=== PATIENT | female | born 1975 | race Caucasian/White ===

== ENCOUNTER → 2016-11-29 | Outpatient (REF) | payer OTHER ==
[2016-11-29 16:43] LABS: ANION GAP 10 MEQ/L (8-16); BLOOD UREA NITROGEN 7 MG/DL (7-18); CALCIUM LEVEL 9.1 MG/DL (8.5-10.1); CARBON DIOXIDE LEVEL 29 MEQ/L (21-32); CHLORIDE LEVEL 104 MEQ/L (98-107); CREATININE FOR GFR 0.78 MG/DL (0.55-1.02); GLOMERULAR FILTRATION RATE > 60.0 (>58); GLUCOSE, FASTING 72 MG/DL (70-105); POTASSIUM SERUM 3.4 MEQ/L (3.5-5.1); SODIUM LEVEL 143 MEQ/L (136-145)
== END ==
LOC: M SFHCPLAZ 11:45
PROVIDERS: ATTEND Nurse Practitioner Family
DX: E87.6 Hypokalemia (principal)

== ENCOUNTER → 2017-01-17 | Outpatient (REF) | payer OTHER ==
[2017-01-17 16:19] LABS: ANION GAP 6 MEQ/L (8-16); BLOOD UREA NITROGEN 7 MG/DL (7-18); CALCIUM LEVEL 8.6 MG/DL (8.5-10.1); CARBON DIOXIDE LEVEL 29 MEQ/L (21-32); CHLORIDE LEVEL 103 MEQ/L (98-107); CREATININE FOR GFR 0.75 MG/DL (0.55-1.02); GLOMERULAR FILTRATION RATE > 60.0 (>58); GLUCOSE, FASTING 102 MG/DL (70-105); POTASSIUM SERUM 4.6 MEQ/L (3.5-5.1); SODIUM LEVEL 138 MEQ/L (136-145)
[2017-01-17 16:37] LABS: BASO # 0.1 K/mm3 (0.0-0.2); BASO % 0.6 % (0.0-1.0); EOS # 0.3 K/mm3 (0.0-0.50); EOS % 2.6 % (0.0-3.0); LARGE UNSTAINED CELL # 0.3 K/mm3 (0.0-0.4); LYMPH # 3.3 K/mm3 (1.5-4.5); LYMPH % 28.4 % (24.0-44.0); MEAN CORPUSCULAR HEMOGLOBIN 30.1 pg (27.0-33.0); MEAN CORPUSCULAR HGB CONC 31.1 g/dl (32.0-36.5); MEAN CORPUSCULAR VOLUME 96.8 fl (80.0-96.0); MONO # 0.7 K/mm3 (0.0-0.8); MONO % 6.5 % (0.0-5.0); NEUTROPHILS # 6.1 K/mm3 (1.8-7.7); NEUTROPHILS % 58.9 % (36.0-66.0); PLATELET COUNT, AUTOMATED 394 k/mm3 (150-450); RED CELL DISTRIBUTION WIDTH 13.3 % (11.5-14.5); WHITE BLOOD COUNT 10.4 K/mm3 (4.0-10.0)
[2017-01-17 17:08] LABS: ERYTHROCYTE SEDIMENTATION RATE 32 mm/hr (0-20)
== END ==
LOC: M SFHCPLAZ 13:50
PROVIDERS: ATTEND Nurse Practitioner Family
DX: R60.0 Localized edema (principal); S82.141G Displaced bicondylar fracture of right tibia, subsequent encounter for closed fracture with delayed healing

== ENCOUNTER 2017-03-17 20:15 | Emergency (ER) | payer OTHER ==
[~2017-03-17] VITALS: Ht 157.5 cm; Wt 79.0 kg
[2017-03-17] MEDS ORDERED: VENLAFAXINE PO (21:04)
[2017-03-17] MEDS ORDERED: FURO20TA2 PO (21:04)
[2017-03-17] MEDS ORDERED: MORP1TAB21 PO (21:04)
[2017-03-17] MEDS ORDERED: CLON1TAB PO (21:04)
[2017-03-17] MEDS ORDERED: LOSA25TA8 PO (21:04)
[2017-03-17] MEDS ORDERED: ZOLP10TA2 PO (21:04)
[2017-03-17] MEDS ORDERED: CEPH500C PO (21:04)
[2017-03-17] MEDS ORDERED: POTA20TA6 PO (21:04)
[2017-03-17] MEDS ORDERED: PANT40TA2 PO (21:04)
[2017-03-18] MEDS ORDERED: PERCOCET 5MG/325MG TAB PO ONE
[2017-03-18 00:38] VITALS: BP 115/71
--- NOTE | 2017-03-18 01:00 | REPUSA ---
CLINICAL HISTORY: Edema. COMMENTS: Real time sonography with duplex doppler of the right lower extremity was performed with attention to the major deep venous structures. Evaluation reveals the right common femoral, superficial femoral and popliteal veins to be completely compressible without intraluminal thrombus. There is normal spontaneous phasic flow and augmentation . The greater saphenous/common femoral vein junction is patent. IMPRESSION: No evidence of DVT in right lower extremity. Thank you for your kind referral of this patient.
== END 2017-03-18 00:40 | disposition home or self-care (01) ==
LOC: M ED 21:53
DX: R60.9 Edema, unspecified (principal); F17.200 Nicotine dependence, unspecified, uncomplicated; Z79.899 Other long term (current) drug therapy; Z88.1 Allergy status to other antibiotic agents; Z88.2 Allergy status to sulfonamides; Z88.8 Allergy status to other drugs, medicaments and biological substances; Z90.79 Acquired absence of other genital organ(s)

== ENCOUNTER → 2017-05-03 | Outpatient (REF) | payer OTHER ==
[~2017-05-03] MED LIST: CEPH500C PO; CLON1TAB PO; FURO20TA2 PO; LOSA25TA8 PO; MORP1TAB21 PO; PANT40TA2 PO; POTA20TA6 PO; VENLAFAXINE PO; ZOLP10TA2 PO
[2017-05-03 19:58] LABS: ANION GAP 9 MEQ/L (8-16); BLOOD UREA NITROGEN 8 MG/DL (7-18); CALCIUM LEVEL 9.1 MG/DL (8.5-10.1); CARBON DIOXIDE LEVEL 29 MEQ/L (21-32); CHLORIDE LEVEL 103 MEQ/L (98-107); CREATININE FOR GFR 0.62 MG/DL (0.55-1.02); FREE T4 0.63 NG/DL (0.76-1.46); GLOMERULAR FILTRATION RATE > 60.0 (>58); GLUCOSE, FASTING 74 MG/DL (70-105); POTASSIUM SERUM 4.4 MEQ/L (3.5-5.1); SODIUM LEVEL 141 MEQ/L (136-145)
[2017-05-04 08:32] LABS: T UPTAKE 30 % (30-39); THYROXINE (T4) 6.3 UG/DL (4.5-12.0)
== END ==
LOC: M SFHCPLAZ 15:17
PROVIDERS: ATTEND Nurse Practitioner Family
DX: E87.6 Hypokalemia (principal); I10 Essential (primary) hypertension; K63.9 Disease of intestine, unspecified

== ENCOUNTER → 2018-10-25 | Outpatient (REF) | payer BC, OTHER ==
[~2018-10-25] MED LIST changes: -CLON1TAB PO; +CLON1TAB8 PO; +LOSA25TA14 PO; -LOSA25TA8 PO; -PANT40TA2 PO; +PANT40TA3 PO
== END ==
LOC: M SFHCCLAY 16:16
PROVIDERS: ATTEND Nurse Practitioner Family
DX: R50.9 Fever, unspecified (principal)

== ENCOUNTER → 2019-01-29 | Outpatient (REF) | payer BC ==
[2019-01-30 11:24] LABS: BLOOD UREA NITROGEN 7 MG/DL (7-18); CALCIUM LEVEL 8.8 MG/DL (8.5-10.1); CARBON DIOXIDE LEVEL 30 MEQ/L (21-32); CHLORIDE LEVEL 104 MEQ/L (98-107); CREATININE FOR GFR 0.74 MG/DL (0.55-1.30); GLOMERULAR FILTRATION RATE > 60.0 (>58); GLUCOSE, FASTING 91 MG/DL (70-100); POTASSIUM SERUM 4.9 MEQ/L (3.5-5.1); SODIUM LEVEL 137 MEQ/L (136-145)
== END ==
LOC: M SFHCCLAY 13:46
PROVIDERS: ATTEND Nurse Practitioner Family
DX: R60.1 Generalized edema (principal)

== ENCOUNTER → 2019-03-19 | Outpatient (CLI) | payer BC ==
--- NOTE | 2019-03-19 16:59 | REP ---
Bilateral hip series: Four views. History: Bilateral hip pain. Findings: AP and frog-leg views of each hip show smooth rounded femoral heads and intact hip joint space. Periarticular soft tissues are unremarkable. No erosive change is seen. Impression: Negative radiographs of the hips bilaterally.
== END ==
LOC: M CLY 14:04
PROVIDERS: ATTEND Nurse Practitioner Family
DX: M25.552 Pain in left hip (principal); M25.551 Pain in right hip

== ENCOUNTER 2019-07-10 14:46 | Inpatient (IN) | payer BC ==
[~2019-07-10] VITALS: Ht 157.5 cm; Wt 71.9 kg
[2019-07-10 15:30] VITALS: BP 138/78
[2019-07-10] MEDS: VENLAFAXINE **XR** 75MG CAPSULE PO SCH (16:30)
[2019-07-10] MEDS ORDERED: CLINDAMYCIN 600 MG in IV 1 EA IV SCH (16:45)
[2019-07-10] MEDS ORDERED: TIZA4TAB4 PO (17:01)
[2019-07-10] MEDS ORDERED: OXYC1TAB23 PO (17:01)
[2019-07-10] MEDS ORDERED: LINZ290C PO (17:01)
[2019-07-10] MEDS ORDERED: DOCU100C17 PO (17:01)
[2019-07-10] MEDS ORDERED: DICY20TA PO (17:01)
[2019-07-10] MEDS ORDERED: META28.32 PO (17:01)
[2019-07-10] MEDS ORDERED: MUPI2OI TOP (17:01)
[2019-07-10] MEDS ORDERED: VENL-37 PO (17:01)
[2019-07-10] MEDS ORDERED: DILT60TA PO (17:01)
[2019-07-10] MEDS ORDERED: SUMA50TA2 PO (17:01)
[2019-07-10] MEDS ORDERED: LINE1TAB PO (17:01)
[2019-07-10] MEDS ORDERED: VENTAER INH (17:03)
[2019-07-10] MEDS: MORPHINE 4 MG/ML 1ML VIAL/SYRINGE (J2270) IV PRN ×2 (17:23→21:44)
[2019-07-10 17:31] LABS: BASO # 0.1 10^3/uL (0.0-0.2); BASO % 0.5 % (0.0-1.0); EOS # 0.1 10^3/uL (0.0-0.5); EOS % 0.8 % (0.0-3.0); HEMATOCRIT 42.3 % (36.0-47.0); HEMOGLOBIN 13.5 g/dl (12.0-15.5); LYMPH # 2.8 10^3/uL (1.5-5.0); LYMPH % 23.5 % (24.0-44.0); MEAN CORPUSCULAR HEMOGLOBIN 28.9 pg (27.0-33.0); MEAN CORPUSCULAR HGB CONC 31.9 g/dl (32.0-36.5); MEAN CORPUSCULAR VOLUME 90.6 fl (80.0-96.0); MONO # 0.7 10^3/uL (0.0-0.8); MONO % 5.9 % (0.0-5.0); NEUTROPHILS # 8.1 10^3/uL (1.5-8.5); NEUTROPHILS % 68.9 % (36.0-66.0); PLATELET COUNT, AUTOMATED 307 10^3/uL (150-450); RED BLOOD COUNT 4.67 10^6/uL (4.00-5.40); WHITE BLOOD COUNT 11.8 10^3/uL (4.0-10.0)
[2019-07-10 17:33] LABS: BLOOD UREA NITROGEN 6 MG/DL (7-18); C REACTIVE PROTEIN QUANTITATIV 0.38 MG/DL (0.00-0.30); CALCIUM LEVEL 9.1 MG/DL (8.5-10.1); CARBON DIOXIDE LEVEL 26 MEQ/L (21-32); CHLORIDE LEVEL 106 MEQ/L (98-107); CREATININE FOR GFR 0.86 MG/DL (0.55-1.30); GLOMERULAR FILTRATION RATE > 60.0 (>58); GLUCOSE, FASTING 105 MG/DL (70-100); POTASSIUM SERUM 3.1 MEQ/L (3.5-5.1); SODIUM LEVEL 138 MEQ/L (136-145)
[2019-07-10] MEDS: NORCO, ANEXSIA 5/325MG TABLET (HYDROcodone/ACETAMINOPHEN) PO PRN (17:58)
[2019-07-10 18:45] LABS: ERYTHROCYTE SEDIMENTATION RATE 7 mm/hr (0-20)
[2019-07-10] MEDS ORDERED: SUMAtriptan SUCCINATE 25 MG TAB PO PRN (19:15)
[2019-07-10] MEDS ORDERED: ALBUTEROL 90 MCG/ACT 8GM HFA INHALER INH PRN (19:15)
[2019-07-10] MEDS ORDERED: DICYCLOMINE 10 MG CAP PO PRN (19:30)
[2019-07-10] MEDS ORDERED: VANCOMYCIN HCL 1,000 MG, VIAL MATE ADAPTER 1 EACH in D5W 250 ML IV ONE (20:00)
[2019-07-10] MEDS ORDERED: POTASSIUM CHLORIDE 10 MEQ SR TABLET PO ONE (20:00)
[2019-07-10] MEDS: clonazePAM 1 MG TAB PO PRN (20:03)
[2019-07-10] MEDS: tiZANidine 4 MG TAB PO PRN (20:03)
--- NOTE | 2019-07-10 20:30 | HPEPDOC ---
General Date of Admission Jul 10, 2019 at 14:46 Date of Service: Jul 10, 2019 Chief Complaint The patient is a 43-year-old female admitted with a reason for visit of Bilateral Post Op Wound Infection. Source: Patient, RN/MD Exam Limitations: No limitations Timing/Duration: Week(s) Severity: Moderate Associated Symptoms: Fever, Chills History of Present Illness This 43-year-old female who's been having difficulty with plantar fasciitis for at least 2 years. She has undergone multiple noninvasive modalities without good results. She has subsequently undergone bilateral plantar fascia release on June 25. She has had remarkable pain since then. She notes having onset of fever up to 101.2 and chills. She states on occasion she has had drainage from her right foot wound. She has been on outpatient oral antibiotics inclusive of clindamycin and most recently linezolid. She still has not improved and so she has been directly admitted for additional inpatient management. Other history of interest is that the patient reports having chronic lower extremity edema. She also has episodes of tachycardia. She states she is on Lasix for this. Home Medications Scheduled Diltiazem Hcl (Diltiazem HCl) 60 Mg Tablet, 60 MG PO AC, (Reported) Docusate Sodium (Docusate Sodium) 100 Mg Capsule, 100 MG PO Q2D, (Reported) Furosemide (Furosemide) 20 Mg Tab, 20 MG PO BID, (Reported) Linezolid (Linezolid) 600 Mg Tablet, 600 MG PO BID, (Reported) Losartan Potassium (Losartan Potassium) 25 Mg Tab, 25 MG PO DAILY, (Reported) Mupirocin (Mupirocin) 22 Gm Oint...g., 1 APPLIC TOP DAILY, (Reported) APPLY TO INCISION ON FOOT Pantoprazole Sodium (Pantoprazole Sodium) 40 Mg Tab, 40 MG PO DAILY, (Reported) Potassium Chloride (Potassium Chloride) 20 Meq Tab, 40 MEQ PO DAILY, (Reported) Psyllium Husk (with Sugar) (Metamucil Powder) 575 Gm Powder, 1 PKT PO Q2D, (Reported) Venlafaxine HCl (Venlafaxine HCl) 75 Mg Tablet, 225 MG PO DAILY, (Reported) TAKES 225MG TAB AT HOME Scheduled PRN Albuterol Sulfate (Ventolin Hfa) 18 Gm Hfa.aer.ad, 2 PUFF INH Q4H PRN for wheezing, (Reported) Clonazepam (Clonazepam) 1 Mg Tab, 1 MG PO BID PRN for anxiety, (Reported) Dicyclomine HCl (Dicyclomine HCl) 20 Mg Tablet, 20 MG PO DAILY PRN for IRRITABLE BOWEL, (Reported) Linaclotide (Linzess) 290 Mcg Capsule, 290 MCG PO DAILY PRN for CONSTIPATION, (Reported) Oxycodone HCl/Acetaminophen (Oxycodone-Acetaminophen 5-325) 1 Each Tablet, 1 TAB PO Q8H PRN for PAIN, (Reported) Sumatriptan Succinate (Sumatriptan Succinate) 50 Mg Tablet, 50 MG PO DAILY PRN for MIGRAINE, (Reported) REPEAT AFTER 2 HOURS IF SYMPTOMS PERSIST Tizanidine HCl (Tizanidine HCl) 4 Mg Tablet, 4 MG PO Q6H PRN for MUSCLE SPASMS, (Reported) Allergies Coded Allergies: ketorolac (Verified Allergy, Mild, 07/10/19) Sulfa (Sulfonamide Antibiotics) (Verified Allergy, Unknown, 07/10/19) clarithromycin (Verified Allergy, Unknown, 07/10/19) propranolol (Verified Allergy, Unknown, 07/10/19) Past Medical History Medical History Other past medical history includes fibromyalgia, psoriasis, asthma, irritable bowel syndrome, migraine headaches, lumbar stenosis, fibromatosis. Patient also reports that she is positive for HLA B 27, but this is of unclear significance. Surgical History Surgical history includes prior , tonsillectomy with adenoidectomy, cholecystectomy, resection of "bone nodules", carpal tunnel release, resection of endochondroma. Family History Patient reports maternal history of valvular heart disease requiring valve replacement surgery. There is paternal history of leukemia and scleroderma with Raynaud's. 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 Physical Examination General Exam: Positive: Cooperative, Mild Distress (from pain) Eye Exam: Positive: PERRLA, Conjunctiva & lids normal ENT Exam: Positive: Atraumatic, Mucous membr. moist/pink, Tongue Midline Neck Exam: Positive: Supple; Negative: JVD, thyromegaly Chest Exam: Positive: Clear to auscultation, Normal air movement Heart Exam: Positive: Rate Normal, Regular Rhythm, Normal S1, Normal S2; Negative: Murmurs, Rubs Telemetry: Positive: No significant arrhythmia Abdomen Exam: Positive: Normal bowel sounds, Soft; Negative: Tenderness, Hepatospenomegaly Extremity Exam: Positive: Normal pulses, Tenderness, Swelling, Other (incision site at the medial base of her right heel is quite swollen and she reports some drainage of pus from this site. It is remarkably warm and erythematous. Incision site to the medial base of her left heel is fairly clean. There is erythema but no drainage. It is not especially tender.) Skin Exam: Positive: Nl turgor and temperature, Lesion (she does not currently exhibit psoriasis plaques) Neuro Exam: Positive: Normal Gait, Normal Speech, Cranial Nerves 3-12 NL, Reflexes 2+ Psych Exam: Positive: Anxiety (the patient is extremely anxious), Oriented x 3 Vital Signs Vital Signs Date Time Temp Pulse Resp B/P (MAP) Pulse Ox O2 Delivery O2 Flow Rate FiO2 07/10/19 18:55 20 07/10/19 15:30 97.7 83 138/78 (98) 97 Laboratory Data Labs 24H Laboratory Tests 2 07/10/19 16:53: Immature Granulocyte % (Auto) 0.4, White Blood Count 11.8H, Red Blood Count 4.67, Hemoglobin 13.5, Hematocrit 42.3, Mean Corpuscular Volume 90.6, Mean Corpuscular Hemoglobin 28.9, Mean Corpuscular Hemoglobin Concent 31.9L, Red Cell Distribution Width 14.9H, Platelet Count 307, Neutrophils (%) (Auto) 68.9H, Lymphocytes (%) (Auto) 23.5L, Monocytes (%) (Auto) 5.9H, Eosinophils (%) (Auto) 0.8, Basophils (%) (Auto) 0.5, Neutrophils # (Auto) 8.1, Lymphocytes # (Auto) 2.8, Monocytes # (Auto) 0.7, Eosinophils # (Auto) 0.1, Basophils # (Auto) 0.1, Nucleated Red Blood Cells % (auto) 0.0, Erythrocyte Sedimentation Rate 7, Anion Gap 6L, Glomerular Filtration Rate > 60.0, Blood Urea Nitrogen 6L, Creatinine 0.86, Sodium Level 138, Potassium Level 3.1L, Chloride Level 106, Carbon Dioxide Level 26, Calcium Level 9.1, C-Reactive Protein, Quantitative 0.38H CBC/BMP Laboratory Tests 07/10/19 16:53 Red Blood Count 4.67, Mean Corpuscular Volume 90.6, Mean Corpuscular Hemoglobin 28.9, Mean Corpuscular Hemoglobin Concent 31.9 L, Red Cell Distribution Width 14.9 H, Neutrophils (%) (Auto) 68.9 H, Lymphocytes (%) (Auto) 23.5 L, Monocytes (%) (Auto) 5.9 H, Eosinophils (%) (Auto) 0.8, Basophils (%) (Auto) 0.5, Neutrophils # (Auto) 8.1, Lymphocytes # (Auto) 2.8, Monocytes # (Auto) 0.7, Eosinophils # (Auto) 0.1, Basophils # (Auto) 0.1, Calcium Level 9.1 Microbiology Microbiology 07/10/19 Blood Culture, Received Pending Assessment/Plan 1. Postop wound infection. Given the presence of erythema, fever, chills, and drainage from the right heel wound site concern is raised for postop wound infection. We will check a white blood cell count and inflammatory indicators. Hopefully, there is not involvement of underlying bone. Cultures will be obtained and the patient will be placed on empiric antibiotics in the form of IV clindamycin. We will remain in contact with the podiatry service, it is possible that the right heel site might need drainage if it does not respond to IV antibiotics. We will make use of IV morphine and oral hydrocodone for pain management; patient states she has been on Vicodin and Percocet at home. 2. Irritable bowel syndrome. We will continue with the patient's dicyclomine as needed. We do not have Linzess on formulary. 3. Migraine headache, asthma, fibromyalgia. We will continue medication such as Effexor, sumatriptan and her metered-dose inhalers for management. 4. Adverse reactions. We will need to clarify the patient's drug allergies; she reports allergies to codeine, sulfa drugs and Toradol; clarithromycin and propranolol are also reported. The patient is inpatient status. We anticipate it will take greater than 2 midnights to clarify whether she is going to be antibiotic responsive or require any invasive/surgical intervention. Plan / VTE VTE Prophylaxis Ordered?: Yes (patient is receiving DVT prophylaxis with Lovenox) Plan Diet: Continue Current Activity: Continue Current Medications: Replete Electrolytes PO, Start Antibiotics Diagnostics: Check Labs, Repeat Labs in AM, Obtain Cultures, Xrays (consider if there are signs of deep inflammation) Anticipated Discharge: Home SANTOS FELICIANO MD Jul 10, 2019 20:30
[2019-07-10] MEDS ORDERED: VANCOMYCIN HCL 500 MG in D5W MINI-BAG PLUS 100 ML IV ONE (21:00)
[2019-07-10] MEDS: zolPIDEM TARTRATE 5 MG TAB PO SCH (21:42)
[2019-07-10] MEDS: MUPIROCIN 2% OINT 22 GM TUBE TOP SCH (21:43)
[2019-07-10 22:00] VITALS: BP 101/58
--- NOTE | 2019-07-10 23:41 | PHACANCOPD ---
PHARMACY VANCOMYCIN DOSING Pt Demographics Demographics Patient Age:43 , Weight:71.900 , Gender: female Adjusted Body Weight Events Past 24 Hours Events Past 24 Hours: NO: Dialysis, Diuretic Therapy, Change in CrCl, Fever, Elevation in WBC, Pending Diagnostics, Pending Procedures, Other Vancomycin Vancomycin indication: CELLULITIS post surgical Vancomycin Target Ranges: 10-20 mcg/ml Vancomycin Load Y/N: Yes Load Dose Date Time Vancomycin Load Dose: 1.5GM Date: 07/10/19 Time: 20:00 Vancomycin Dose Date: 07/11/19. Current Vancomycin Dose: [1GM IV Q8H (04:00)] Intermittent Dosing?: No Labs Labs Laboratory Tests 07/10/19 16:53 Red Blood Count 4.67, Mean Corpuscular Volume 90.6, Mean Corpuscular Hemoglobin 28.9, Mean Corpuscular Hemoglobin Concent 31.9 L, Red Cell Distribution Width 14.9 H, Neutrophils (%) (Auto) 68.9 H, Lymphocytes (%) (Auto) 23.5 L, Monocytes (%) (Auto) 5.9 H, Eosinophils (%) (Auto) 0.8, Basophils (%) (Auto) 0.5, Neutrophils # (Auto) 8.1, Lymphocytes # (Auto) 2.8, Monocytes # (Auto) 0.7, Eosinophils # (Auto) 0.1, Basophils # (Auto) 0.1, Calcium Level 9.1 Micro Microbiology 07/10/19 Blood Culture, Received Pending Creatinine Clearance Date:07/10/19. Creatinine Clearance: [>60]. Pending Labs VANCO TROUGH 07/11/19 19:00 Assessment and Plan Maintaining Current Dose?: Yes Reason for dose change: No Dose Change Pharmacist Note Pharmacist Note Date: 07/10/19. PharmD note:VANCO 1.5GM LOAD FOLLOWED BY 1GM IV Q8H STARTING AT 04:l00. WE WILL OBTAIN THE FIRST VANCO TROUGH PRIOR TO THE 20:00 DOSE 07/11/19 RAFAEL BUCKNER PHARMACY Jul 10, 2019 23:41
[2019-07-11] MEDS: NORCO, ANEXSIA 5/325MG TABLET (HYDROcodone/ACETAMINOPHEN) PO PRN ×5 (00:15→20:49)
[2019-07-11] MEDS: VANCOMYCIN HCL 1,000 MG, VIAL MATE ADAPTER 1 EACH in D5W 250 ML IV SCH ×2 (03:34→12:58)
[2019-07-11] MEDS: MORPHINE 4 MG/ML 1ML VIAL/SYRINGE (J2270) IV PRN ×6 (03:34→21:44)
[2019-07-11 06:00] VITALS: BP 106/67
[2019-07-11 06:44] LABS: BLOOD UREA NITROGEN 7 MG/DL (7-18); CALCIUM LEVEL 8.8 MG/DL (8.5-10.1); CARBON DIOXIDE LEVEL 27 MEQ/L (21-32); CHLORIDE LEVEL 105 MEQ/L (98-107); GLOMERULAR FILTRATION RATE > 60.0 (>58); GLUCOSE, FASTING 86 MG/DL (70-100); MAGNESIUM LEVEL 1.6 MG/DL (1.8-2.4); POTASSIUM SERUM 3.3 MEQ/L (3.5-5.1); SODIUM LEVEL 139 MEQ/L (136-145)
[2019-07-11] MEDS: FUROSEMIDE 20 MG TAB PO SCH ×2 (08:16→16:43)
[2019-07-11] MEDS: VENLAFAXINE **XR** 75MG CAPSULE PO SCH (08:16)
[2019-07-11] MEDS: DOCUSATE SODIUM 100 MG CAP PO SCH (08:16)
[2019-07-11] MEDS: LOSARTAN 25 MG TAB PO SCH (08:18)
[2019-07-11] MEDS: METAMUCIL (PSYLLIUM) PACKET PO SCH (08:18)
[2019-07-11] MEDS: ENOXAPARIN 40 MG/0.4 ML SYRINGE (J1650) SC SCH (08:19)
[2019-07-11] MEDS: MUPIROCIN 2% OINT 22 GM TUBE TOP SCH ×2 (08:39→20:48)
--- NOTE | 2019-07-11 08:53 | IPNPDOC ---
Subjective Date Seen The patient was seen on 07/11/19. Subjective Chief Complaint/HPI Pt this morning states that her feet, heels cont to hurt R more than L. She denies fevers or chills. She does have a cough which she attributes to not smoking in the last few days. Constitutional: Denies: Chills, Fever Pulmonary: Reports: Cough; Denies: Dyspnea Gastrointestinal: Denies: Nausea, Vomiting Musculoskeletal: Reports: Foot Pain Neurological: Denies: Weakness Psych: Denies: Mood Normal Objective Physical Examination General Exam: Positive: Cooperative, No Acute Distress ENT Exam: Positive: Mucous membr. moist/pink Neck Exam: Positive: Supple; Negative: JVD, thyromegaly Chest Exam: Positive: Clear to auscultation, Normal air movement Heart Exam: Positive: Rate Normal, Regular Rhythm, Normal S1, Normal S2; Negative: Murmurs, Rubs Telemetry: Positive: No significant arrhythmia Abdomen Exam: Positive: Normal bowel sounds, Soft; Negative: Tenderness, Hepatospenomegaly Extremity Exam: Positive: Normal pulses, Tenderness, Swelling, Other (R heel appears swollen, warm and erythematous, with medial incision, there appears to be some fluctuation around the incision, L heel also warm, mildly erythematous, swollen, less tender, per patient report. No reactive lymphadenopathy at right i nguinal node bed.) Skin Exam: Positive: Nl turgor and temperature, Lesion (she does not currently exhibit psoriasis plaques) Neuro Exam: Positive: Normal Gait, Normal Speech, Cranial Nerves 3-12 NL, Reflexes 2+ Psych Exam: Positive: Anxiety, Oriented x 3 Assessment /Plan Problems (1) Wound infection after surgery Status: Acute Response to Treatment: Stable Discussed With: Nurse, Patient Problem Specific Plan: Consult Specialist, Monitor Clinically, Repeat Labs Problem Text: Pt is Post op Bilatral plantar fascitis release with wound infection. She is afebrile, nl WBC, CRP on admission 0.38. She has been started on IV CLinda D2 and vancomycin and is tolerating this. IV morphine for pain control. Dr Marquez has been consulted. Will d/c clinda, start ceftaroline. Consider ID consult if not improving quickly. At this point will leave wound management decision to Dr. Marquez (whether wound requires I&D). (2) Smoker Status: Chronic Response to Treatment: Stable Problem Specific Plan: Monitor Clinically Problem Text: Smoking cessation counseling. Plan/VTE VTE Prophylaxis Ordered?: Yes VS, I&O, 24H, Fishbone Vital Signs/I&O Vital Signs Date Time Temp Pulse Resp B/P (MAP) Pulse Ox O2 Delivery O2 Flow Rate FiO2 07/11/19 08:22 18 07/11/19 08:18 109/68 07/11/19 07:46 69 07/11/19 06:00 98.0 94 I&O- Last 24 Hours up to 6 AM 07/11/19 06:00 Intake Total 1500 ml Output Total 900 ml Balance 600 ml Laboratory Data 24H LABS Laboratory Tests 2 07/10/19 16:53: Immature Granulocyte % (Auto) 0.4, White Blood Count 11.8H, Red Blood Count 4.67, Hemoglobin 13.5, Hematocrit 42.3, Mean Corpuscular Volume 90.6, Mean Corpuscular Hemoglobin 28.9, Mean Corpuscular Hemoglobin Concent 31.9L, Red Cell Distribution Width 14.9H, Platelet Count 307, Neutrophils (%) (Auto) 68.9H, Lymphocytes (%) (Auto) 23.5L, Monocytes (%) (Auto) 5.9H, Eosinophils (%) (Auto) 0.8, Basophils (%) (Auto) 0.5, Neutrophils # (Auto) 8.1, Lymphocytes # (Auto) 2.8, Monocytes # (Auto) 0.7, Eosinophils # (Auto) 0.1, Basophils # (Auto) 0.1, Nucleated Red Blood Cells % (auto) 0.0, Erythrocyte Sedimentation Rate 7, Anion Gap 6L, Glomerular Filtration Rate > 60.0, Blood Urea Nitrogen 6L, Creatinine 0.86, Sodium Level 138, Potassium Level 3.1L, Chloride Level 106, Carbon Dioxide Level 26, Calcium Level 9.1, C-Reactive Protein, Quantitative 0.38H 07/11/19 05:55: Anion Gap 7L, Glomerular Filtration Rate > 60.0, Blood Urea Nitrogen 7, Creatinine 0.80, Sodium Level 139, Potassium Level 3.3L, Chloride Level 105, Carbon Dioxide Level 27, Calcium Level 8.8, Magnesium Level 1.6L CBC/BMP Laboratory Tests 07/10/19 16:53 Red Blood Count 4.67, Mean Corpuscular Volume 90.6, Mean Corpuscular Hemoglobin 28.9, Mean Corpuscular Hemoglobin Concent 31.9 L, Red Cell Distribution Width 14.9 H, Neutrophils (%) (Auto) 68.9 H, Lymphocytes (%) (Auto) 23.5 L, Monocytes (%) (Auto) 5.9 H, Eosinophils (%) (Auto) 0.8, Basophils (%) (Auto) 0.5, Neutrophils # (Auto) 8.1, Lymphocytes # (Auto) 2.8, Monocytes # (Auto) 0.7, Eosinophils # (Auto) 0.1, Basophils # (Auto) 0.1, Calcium Level 9.1 07/11/19 05:55 Calcium Level 8.8 Microbiology Microbiology 07/10/19 Blood Culture, Received Pending EVRIN OCONNOR PA-C Jul 11, 2019 08:53 Kamari Titus MD Jul 11, 2019 12:12
[2019-07-11] MEDS ORDERED: PANTOPRAZOLE 40MG TAB (PROTONIX) PO SCH (09:00)
[2019-07-11] MEDS ORDERED: INFLUENZA QUADRIVALENT PF VACCINE 0.5ML SYRINGE (90686) IM ONE (09:00)
[2019-07-11] MEDS ORDERED: POTASSIUM CHLORIDE 10 MEQ SR TABLET PO SCH (09:00)
[2019-07-11] MEDS ORDERED: POTASSIUM CHLORIDE 10 MEQ SR TABLET PO ONE (09:00)
[2019-07-11] MEDS ORDERED: MAGNESIUM OXIDE 400 MG TAB (MAG-OX) PO ONE (10:00)
[2019-07-11] MEDS: PANTOPRAZOLE 40MG TAB (PROTONIX) PO SCH (10:00)
[2019-07-11] MEDS: CEFTAROLINE FOSAMIL 600 MG in D5W MINI-BAG PLUS 50 ML IV SCH ×2 (11:00→23:34)
--- NOTE | 2019-07-11 12:38 | CR ---
DATE OF CONSULTATION: 07/11/2019 REASON FOR CONSULTATION: Postoperative infection. Ms. Muro is a 44-year-old female who was seen in my office yesterday for postoperative evaluation. She had bilateral open plantar fascial release on 06/25/2019. The week following, she had developed redness and increasing pain along the incision. She was initially treated with cephalexin. She ultimately went to the emergency room days later with worsening pain and was given IV clindamycin. She had then been started on linezolid, which she has received three days. She had persisting redness, as well as subjective fevers at home. Decision was made to bring her to the hospital for IV antibiotics and pain management. PAST MEDICAL HISTORY: 1. Fibromyalgia. 2. Psoriasis. 3. Lumbar stenosis. SURGICAL HISTORY: 1. Tonsillectomy. 2. Adenoidectomy. 3. Cholecystectomy. 4. Carpal tunnel release. 5. Plantar fascia release. SOCIAL HISTORY: Current smoker. REVIEW OF SYSTEMS: Negative for nausea or vomiting or fever since admitted. PHYSICAL EXAMINATION: VITAL SIGNS: Reviewed. She has remained afebrile. Lower extremity examination shows erythema around the incision, which is somewhat improved from yesterday. There is mild posterior rash to the arches suggestive of fungus infection. LABORATORIES: Reviewed. White blood cell count is 11.8, ESR 7, C-reactive protein 0.38. ASSESSMENT: 44-year-old female with cellulitis status post foot surgery. PLAN: Continue antibiotics. Continue current pain management. We will add ketoconazole for her rash. We will follow.
[2019-07-11 14:00] VITALS: BP 118/76
[2019-07-11] MEDS: tiZANidine 4 MG TAB PO PRN (20:12)
[2019-07-11] MEDS: clonazePAM 1 MG TAB PO PRN (20:12)
[2019-07-11] MEDS: zolPIDEM TARTRATE 5 MG TAB PO SCH (20:47)
[2019-07-11] MEDS: MAGNESIUM OXIDE 400 MG TAB (MAG-OX) PO SCH (20:47)
[2019-07-11] MEDS: KETOCONAZOLE 2% CREAM TOP SCH (20:48)
[2019-07-11 22:00] VITALS: BP 103/66
[2019-07-12 05:49] LABS: BASO # 0.1 10^3/uL (0.0-0.2); EOS # 0.2 10^3/uL (0.0-0.5); EOS % 3.6 % (0.0-3.0); HEMATOCRIT 37.3 % (36.0-47.0); HEMOGLOBIN 11.6 g/dl (12.0-15.5); LYMPH % 34.1 % (24.0-44.0); MEAN CORPUSCULAR HEMOGLOBIN 28.3 pg (27.0-33.0); MEAN CORPUSCULAR HGB CONC 31.1 g/dl (32.0-36.5); MONO # 0.7 10^3/uL (0.0-0.8); MONO % 11.2 % (0.0-5.0); NEUTROPHILS # 2.9 10^3/uL (1.5-8.5); NEUTROPHILS % 49.8 % (36.0-66.0); PLATELET COUNT, AUTOMATED 248 10^3/uL (150-450); WHITE BLOOD COUNT 5.9 10^3/uL (4.0-10.0)
[2019-07-12 06:00] VITALS: BP 120/71
[2019-07-12 06:15] LABS: BLOOD UREA NITROGEN 6 MG/DL (7-18); CALCIUM LEVEL 8.4 MG/DL (8.5-10.1); CARBON DIOXIDE LEVEL 30 MEQ/L (21-32); CHLORIDE LEVEL 105 MEQ/L (98-107); CREATININE FOR GFR 0.74 MG/DL (0.55-1.30); GLOMERULAR FILTRATION RATE > 60.0 (>58); GLUCOSE, FASTING 90 MG/DL (70-100); SODIUM LEVEL 140 MEQ/L (136-145)
[2019-07-12 06:16] LABS: C REACTIVE PROTEIN QUANTITATIV 1.02 MG/DL (0.00-0.30)
[2019-07-12] MEDS: NORCO, ANEXSIA 5/325MG TABLET (HYDROcodone/ACETAMINOPHEN) PO PRN ×2 (08:24→17:36)
[2019-07-12] MEDS: FUROSEMIDE 20 MG TAB PO SCH ×2 (08:59→17:35)
[2019-07-12] MEDS: VENLAFAXINE **XR** 75MG CAPSULE PO SCH (08:59)
[2019-07-12] MEDS: MAGNESIUM OXIDE 400 MG TAB (MAG-OX) PO SCH ×2 (09:00→20:58)
[2019-07-12] MEDS: PANTOPRAZOLE 40MG TAB (PROTONIX) PO SCH (09:00)
[2019-07-12] MEDS ORDERED: PANTOPRAZOLE 40MG TAB (PROTONIX) PO SCH (09:00)
[2019-07-12] MEDS: POTASSIUM CHLORIDE 10 MEQ SR TABLET PO SCH (09:01)
[2019-07-12] MEDS: ENOXAPARIN 40 MG/0.4 ML SYRINGE (J1650) SC SCH (09:01)
[2019-07-12] MEDS: LOSARTAN 25 MG TAB PO SCH (09:01)
[2019-07-12] MEDS: MUPIROCIN 2% OINT 22 GM TUBE TOP SCH ×2 (09:02→20:59)
[2019-07-12] MEDS: KETOCONAZOLE 2% CREAM TOP SCH ×2 (09:02→20:59)
[2019-07-12] MEDS: MORPHINE 4 MG/ML 1ML VIAL/SYRINGE (J2270) IV PRN ×4 (09:15→20:59)
--- NOTE | 2019-07-12 10:04 | IPNPDOC ---
Subjective Date Seen The patient was seen on 07/12/19. Subjective Chief Complaint/HPI Pt this morning states that her R foot is feeling and looking better, but her L foot feels more sore today. She denies fevers or chills. General: Denies: Fatigue Constitutional: Denies: Chills, Fever Pulmonary: Denies: Dyspnea, Cough Cardiovascular: Denies: Chest Pain, Palpitations Gastrointestinal: Denies: Nausea, Vomiting, Diarrhea Neurological: Denies: Weakness Psych: Reports: Mood Normal Objective Physical Examination General Exam: Positive: Cooperative, No Acute Distress ENT Exam: Positive: Mucous membr. moist/pink Neck Exam: Positive: Supple; Negative: JVD, thyromegaly Chest Exam: Positive: Clear to auscultation, Normal air movement Heart Exam: Positive: Rate Normal, Regular Rhythm, Normal S1, Normal S2; Negative: Murmurs, Rubs Telemetry: Positive: No significant arrhythmia Abdomen Exam: Positive: Normal bowel sounds, Soft; Negative: Tenderness, Hepatospenomegaly Extremity Exam: Positive: Normal pulses; Negative: Edema Skin Exam: Positive: Nl turgor and temperature, Lesion (R foot with mild swelling, tenderness, improved erythema, no drainage noted from her wound, L foot withe min swelling, nearly resolved erythemat, no drainage noted ) Neuro Exam: Positive: Normal Gait, Normal Speech, Reflexes 2+ Psych Exam: Positive: Anxiety, Oriented x 3 Assessment /Plan Problems (1) Wound infection after surgery Status: Acute Response to Treatment: Stable Discussed With: Nurse, Patient Problem Specific Plan: Consult Specialist, Monitor Clinically, Repeat Labs Problem Text: 07/12 Note from Jimmy recommends cont current treatment. Pt remain afebrile, WBC has normalized, CRP wallace slightly, monitor. IV Vanco/Ceftaroline. MRSA screening is Neg, will therefore DC Vanco. 07/11 Pt is Post op Bilatral plantar fascitis release with wound infection. She is afebrile, nl WBC, CRP on admission 0.38. She has been started on IV CLinda D2 and vancomycin and is tolerating this. IV morphine for pain control. Dr Marquez has been consulted. Will d/c clinda, start ceftaroline. Consider ID consult if not improving quickly. At this point will leave wound management decision to Dr. Marquez (whether wound requires I&D). (2) Smoker Status: Chronic Response to Treatment: Stable Problem Specific Plan: Monitor Clinically Problem Text: Smoking cessation counseling. Plan/VTE VTE Prophylaxis Ordered?: Yes VS, I&O, 24H, Fishbone Vital Signs/I&O Vital Signs Date Time Temp Pulse Resp B/P (MAP) Pulse Ox O2 Delivery O2 Flow Rate FiO2 07/12/19 09:25 16 07/12/19 09:01 124/71 07/12/19 09:00 78 07/12/19 06:00 98.8 95 I&O- Last 24 Hours up to 6 AM 07/12/19 06:00 Intake Total 3246 ml Output Total 1400 ml Balance 1846 ml Laboratory Data 24H LABS Laboratory Tests 2 07/11/19 11:54: Methicillin-Resist S.aureus DNA PCR NOT DETECTED 07/12/19 05:33: Immature Granulocyte % (Auto) 0.3, White Blood Count 5.9, Red Blood Count 4.10, Hemoglobin 11.6L, Hematocrit 37.3, Mean Corpuscular Volume 91.0, Mean Corpuscular Hemoglobin 28.3, Mean Corpuscular Hemoglobin Concent 31.1L, Red Cell Distribution Width 14.6H, Platelet Count 248, Neutrophils (%) (Auto) 49.8, Lymphocytes (%) (Auto) 34.1, Monocytes (%) (Auto) 11.2H, Eosinophils (%) (Auto) 3.6H, Basophils (%) (Auto) 1.0, Neutrophils # (Auto) 2.9, Lymphocytes # (Auto) 2.0, Monocytes # (Auto) 0.7, Eosinophils # (Auto) 0.2, Basophils # (Auto) 0.1, Nucleated Red Blood Cells % (auto) 0.0, Anion Gap 5L, Glomerular Filtration Rate > 60.0, Blood Urea Nitrogen 6L, Creatinine 0.74, Sodium Level 140, Potassium Level 4.0#, Chloride Level 105, Carbon Dioxide Level 30, Calcium Level 8.4L, Magnesium Level 2.0, C-Reactive Protein, Quantitative 1.02H CBC/BMP Laboratory Tests 07/12/19 05:33 Red Blood Count 4.10, Mean Corpuscular Volume 91.0, Mean Corpuscular Hemoglobin 28.3, Mean Corpuscular Hemoglobin Concent 31.1 L, Red Cell Distribution Width 14.6 H, Neutrophils (%) (Auto) 49.8, Lymphocytes (%) (Auto) 34.1, Monocytes (%) (Auto) 11.2 H, Eosinophils (%) (Auto) 3.6 H, Basophils (%) (Auto) 1.0, Neutrophils # (Auto) 2.9, Lymphocytes # (Auto) 2.0, Monocytes # (Auto) 0.7, Eosinophils # (Auto) 0.2, Basophils # (Auto) 0.1, Calcium Level 8.4 L Microbiology Microbiology 07/10/19 Blood Culture - Preliminary, Resulted No growth after 24 hours . All specim... ERVIN OCONNOR PA-C Jul 12, 2019 10:04
[2019-07-12 11:55] VITALS: BP 138/89
[2019-07-12] MEDS: CEFTAROLINE FOSAMIL 600 MG in D5W MINI-BAG PLUS 50 ML IV SCH ×2 (11:55→23:07)
--- NOTE | 2019-07-12 13:22 | IPN ---
DATE: 07/12/2019 The patient seen and examined. States her pain is still pretty bad, but a little bit better. States the foot does seem to be looking a little bit better. Denies overnight complaints. Negative for nausea, vomiting, fever or chills. Vitals are reviewed. She has remained afebrile. Labs are reviewed. White blood cell count is 5.9. On examination, erythema is slightly improved over the wounds. ASSESSMENT: 44-year-old female with cellulitis and postoperative wound infection status post plantar fascia release. PLAN: Continue antibiotic Teflaro for now. Sutures are removed. At this point, I do not see any need to open incision. I do not believe there is a deep space abscess that is possible to be drained. Will continue to follow.
[2019-07-12 14:00] VITALS: BP 117/99
[2019-07-12] MEDS: zolPIDEM TARTRATE 5 MG TAB PO SCH (20:58)
[2019-07-12 22:00] VITALS: BP 115/73
[2019-07-13] MEDS: NORCO, ANEXSIA 5/325MG TABLET (HYDROcodone/ACETAMINOPHEN) PO PRN ×3 (00:12→22:14)
[2019-07-13] MEDS: MORPHINE 4 MG/ML 1ML VIAL/SYRINGE (J2270) IV PRN ×7 (00:56→20:50)
[2019-07-13] MEDS: clonazePAM 1 MG TAB PO PRN ×2 (02:47→14:04)
[2019-07-13 06:00] VITALS: BP 121/78
[2019-07-13 06:02] LABS: HEMATOCRIT 37.3 % (36.0-47.0); HEMOGLOBIN 11.9 g/dl (12.0-15.5); MEAN CORPUSCULAR HEMOGLOBIN 28.7 pg (27.0-33.0); MEAN CORPUSCULAR HGB CONC 31.9 g/dl (32.0-36.5); MEAN CORPUSCULAR VOLUME 90.1 fl (80.0-96.0); PLATELET COUNT, AUTOMATED 256 10^3/uL (150-450); RED BLOOD COUNT 4.14 10^6/uL (4.00-5.40); WHITE BLOOD COUNT 6.1 10^3/uL (4.0-10.0)
[2019-07-13] MEDS: tiZANidine 4 MG TAB PO PRN ×2 (06:11→14:04)
[2019-07-13 06:39] LABS: BLOOD UREA NITROGEN 6 MG/DL (7-18); C REACTIVE PROTEIN QUANTITATIV 0.85 MG/DL (0.00-0.30); CALCIUM LEVEL 8.4 MG/DL (8.5-10.1); CARBON DIOXIDE LEVEL 32 MEQ/L (21-32); CHLORIDE LEVEL 106 MEQ/L (98-107); CREATININE FOR GFR 0.66 MG/DL (0.55-1.30); GLOMERULAR FILTRATION RATE > 60.0 (>58); GLUCOSE, FASTING 73 MG/DL (70-100); SODIUM LEVEL 140 MEQ/L (136-145)
[2019-07-13] MEDS: ENOXAPARIN 40 MG/0.4 ML SYRINGE (J1650) SC SCH (10:22)
[2019-07-13] MEDS: VENLAFAXINE **XR** 75MG CAPSULE PO SCH (10:23)
[2019-07-13] MEDS: LOSARTAN 25 MG TAB PO SCH (10:23)
[2019-07-13] MEDS: MAGNESIUM OXIDE 400 MG TAB (MAG-OX) PO SCH ×2 (10:24→20:49)
[2019-07-13] MEDS: DOCUSATE SODIUM 100 MG CAP PO SCH (10:24)
[2019-07-13] MEDS: PANTOPRAZOLE 40MG TAB (PROTONIX) PO SCH (10:24)
[2019-07-13] MEDS: POTASSIUM CHLORIDE 10 MEQ SR TABLET PO SCH (10:24)
[2019-07-13] MEDS: METAMUCIL (PSYLLIUM) PACKET PO SCH (10:24)
[2019-07-13] MEDS: FUROSEMIDE 20 MG TAB PO SCH ×2 (10:24→17:07)
[2019-07-13] MEDS: KETOCONAZOLE 2% CREAM TOP SCH ×2 (10:25→20:49)
[2019-07-13] MEDS: MUPIROCIN 2% OINT 22 GM TUBE TOP SCH ×2 (10:25→20:49)
[2019-07-13] MEDS: CEFTAROLINE FOSAMIL 600 MG in D5W MINI-BAG PLUS 50 ML IV SCH ×2 (10:26→22:14)
--- NOTE | 2019-07-13 11:34 | IPNPDOC ---
Subjective Date Seen The patient was seen on 07/13/19. Subjective Chief Complaint/HPI seems that she has increased discomfort at incisions. reported episode of drainage when up to toilet. from right foot incision. Constitutional: Denies: Chills ENT: Denies: Head Aches Pulmonary: Denies: Dyspnea, Pleuritic Chest Pain Cardiovascular: Denies: Chest Pain, Palpitations Gastrointestinal: Denies: Nausea, Vomiting, Abdominal Pain Genitourinary: Denies: Dysuria Musculoskeletal: Reports: Foot Pain (at incisions. also notes some warmth) Objective Physical Examination General Exam: Positive: Cooperative, No Acute Distress ENT Exam: Positive: Mucous membr. moist/pink Neck Exam: Positive: Supple; Negative: JVD, thyromegaly Chest Exam: Positive: Clear to auscultation, Normal air movement Heart Exam: Positive: Rate Normal, Regular Rhythm, Normal S1, Normal S2; Negative: Murmurs, Rubs Telemetry: Positive: No significant arrhythmia Abdomen Exam: Positive: Normal bowel sounds, Soft; Negative: Tenderness, Hepatospenomegaly Extremity Exam: Positive: Normal pulses; Negative: Edema Skin Exam: Positive: Nl turgor and temperature, Lesion (a little more red than yesterday. rondon crusty dried skin and wound margins noted. no active drainage.) Neuro Exam: Positive: Normal Gait, Normal Speech, Reflexes 2+ Psych Exam: Positive: Mental status NL, Mood NL, Oriented x 3 Assessment /Plan Problems (1) Wound infection after surgery Status: Acute Response to Treatment: Stable Discussed With: Nurse, Patient Problem Specific Plan: Consult Specialist, Monitor Clinically, Repeat Labs Problem Text: 07/13. No drainage, seems to be slowing improving overall, today's slightly increased redness not withstanding. Continue Ceftaroline. She has supply of linezolid ready at home for when she is discharge. 07/12 Note from Jimmy recommends cont current treatment. Pt remain afebrile, WBC has normalized, CRP wallace slightly, monitor. IV Vanco/Ceftaroline. MRSA screening is Neg, will therefore DC Vanco. 07/11 Pt is Post op Bilatral plantar fascitis release with wound infection. She is afebrile, nl WBC, CRP on admission 0.38. She has been started on IV CLinda D2 and vancomycin and is tolerating this. IV morphine for pain control. Dr Marquez has been consulted. Will d/c clinda, start ceftaroline. Consider ID consult if not improving quickly. At this point will leave wound management decision to Dr. Marquez (whether wound requires I&D). (2) Smoker Status: Chronic Response to Treatment: Stable Problem Specific Plan: Monitor Clinically Problem Text: Smoking cessation counseling. Plan/VTE VTE Prophylaxis Ordered?: Yes VS, I&O, 24H, Fishbone Vital Signs/I&O Vital Signs Date Time Temp Pulse Resp B/P (MAP) Pulse Ox O2 Delivery O2 Flow Rate FiO2 07/13/19 10:44 20 07/13/19 10:23 110/64 07/13/19 06:00 99.2 87 95 I&O- Last 24 Hours up to 6 AM 07/13/19 06:00 Intake Total 1370 ml Output Total 1525 ml Balance -155 ml Laboratory Data 24H LABS Laboratory Tests 2 07/13/19 05:22: Nucleated Red Blood Cells % (auto) 0.0, Anion Gap 2L, Glomerular Filtration Rate > 60.0, Blood Urea Nitrogen 6L, Creatinine 0.66, Sodium Level 140, Potassium Level 4.0, Chloride Level 106, Carbon Dioxide Level 32, Calcium Level 8.4L, C- Reactive Protein, Quantitative 0.85H CBC/BMP Laboratory Tests 07/13/19 05:22 Red Blood Count 4.14, Mean Corpuscular Volume 90.1, Mean Corpuscular Hemoglobin 28.7, Mean Corpuscular Hemoglobin Concent 31.9 L, Red Cell Distribution Width 14.7 H, Calcium Level 8.4 L Microbiology Microbiology 07/10/19 Blood Culture - Preliminary, Resulted No Growth after 48 hours. All Specime... Kamari Titus MD Jul 13, 2019 11:34
[2019-07-13 14:00] VITALS: BP 103/67
--- NOTE | 2019-07-13 15:26 | HPE ---
DATE OF ADMISSION: 07/13/2019 Patient seen and examined. States feet are still sore. Denies other overnight complaints. Vital signs are reviewed. Maximal temperature was 99.2. LABORATORY DATA: White blood cell count is 6.1, CRP 0.85. Lower extremity examination: Erythema again slightly improved. There is no palpable fluctuance underneath the incisions, and no drainage is noted. ASSESSMENT: Patient status post open plantar fascia release with postoperative wound infection, cellulitis. PLAN: Continue antibiotics. Okay to shower. Continue bacitracin to incision. Will follow. At this time, do not appreciate any subcutaneous skin abscess. If she is not improving over the next day or two, would consider an MRI, but at this time does not seem warranted. Will follow.
[2019-07-13 20:00] VITALS: BP 126/80
[2019-07-13] MEDS: zolPIDEM TARTRATE 5 MG TAB PO SCH (20:49)
[2019-07-14] MEDS: MORPHINE 4 MG/ML 1ML VIAL/SYRINGE (J2270) IV PRN ×5 (02:54→20:25)
[2019-07-14] MEDS: ONDANSETRON 4MG/2ML VIAL (J2405) IV PRN ×2 (03:37→23:21)
[2019-07-14 06:00] VITALS: BP 123/79
[2019-07-14] MEDS: VENLAFAXINE **XR** 75MG CAPSULE PO SCH (08:19)
[2019-07-14] MEDS: PANTOPRAZOLE 40MG TAB (PROTONIX) PO SCH (08:19)
[2019-07-14] MEDS: LOSARTAN 25 MG TAB PO SCH (08:20)
[2019-07-14] MEDS: MAGNESIUM OXIDE 400 MG TAB (MAG-OX) PO SCH ×2 (08:20→20:23)
[2019-07-14] MEDS: POTASSIUM CHLORIDE 10 MEQ SR TABLET PO SCH (08:20)
[2019-07-14] MEDS: FUROSEMIDE 20 MG TAB PO SCH ×2 (08:20→16:30)
[2019-07-14] MEDS: KETOCONAZOLE 2% CREAM TOP SCH ×2 (08:21→20:25)
[2019-07-14] MEDS: ENOXAPARIN 40 MG/0.4 ML SYRINGE (J1650) SC SCH (08:21)
[2019-07-14] MEDS: MUPIROCIN 2% OINT 22 GM TUBE TOP SCH ×2 (08:21→20:26)
[2019-07-14] MEDS: NORCO, ANEXSIA 5/325MG TABLET (HYDROcodone/ACETAMINOPHEN) PO PRN ×4 (10:27→23:22)
[2019-07-14] MEDS ORDERED: BISACODYL 10 MG SUPP PR PRN (10:30)
--- NOTE | 2019-07-14 10:30 | IPNPDOC ---
Subjective Date Seen The patient was seen on 07/14/19. Subjective Chief Complaint/HPI nausea since last night. continues with pain in feet. Constitutional: Denies: Chills, Fever ENT: Denies: Head Aches Pulmonary: Denies: Dyspnea, Pleuritic Chest Pain Cardiovascular: Denies: Chest Pain, Palpitations Gastrointestinal: Reports: Nausea; Denies: Vomiting, Abdominal Pain Hematologic: Denies: Bruising Musculoskeletal: Denies: Neck Pain Neurological: Denies: Weakness Psych: Reports: Mood Normal Objective Physical Examination General Exam: Positive: Cooperative, No Acute Distress ENT Exam: Positive: Mucous membr. moist/pink Neck Exam: Positive: Supple; Negative: JVD, thyromegaly Chest Exam: Positive: Clear to auscultation, Normal air movement Heart Exam: Positive: Rate Normal, Regular Rhythm, Normal S1, Normal S2; Negative: Murmurs, Rubs Telemetry: Positive: No significant arrhythmia Abdomen Exam: Positive: Normal bowel sounds, Soft; Negative: Tenderness, Hepatospenomegaly Extremity Exam: Positive: Normal pulses; Negative: Edema Skin Exam: Positive: Nl turgor and temperature, Lesion (less red, no drainage. some darkening of inferior portion of posterior wound margin on left.) Neuro Exam: Positive: Normal Gait, Normal Speech, Reflexes 2+ Psych Exam: Positive: Mental status NL, Mood NL, Oriented x 3 Assessment /Plan Problems (1) Wound infection after surgery Status: Acute Response to Treatment: Stable Discussed With: Nurse, Patient Problem Specific Plan: Consult Specialist, Monitor Clinically, Repeat Labs Problem Text: 07/13. No drainage, seems to be slowing improving overall, today's slightly increased redness not withstanding. Continue Ceftaroline. She has supply of linezolid ready at home for when she is discharge. 07/12 Note from Jimmy recommends cont current treatment. Pt remain afebrile, WBC has normalized, CRP wallace slightly, monitor. IV Vanco/Ceftaroline. MRSA screening is Neg, will therefore DC Vanco. 07/11 Pt is Post op Bilatral plantar fascitis release with wound infection. She is afebrile, nl WBC, CRP on admission 0.38. She has been started on IV CLinda D2 and vancomycin and is tolerating this. IV morphine for pain control. Dr Marquez has been consulted. Will d/c clinda, start ceftaroline. Consider ID consult if not improving quickly. At this point will leave wound management decision to Dr. Marquez (whether wound requires I&D). (2) Smoker Status: Chronic Response to Treatment: Stable Problem Specific Plan: Monitor Clinically Problem Text: Smoking cessation counseling. (3) Nausea Status: Acute Problem Text: developed last night. no abdominal pain. possible constipation contributes. abdominal exam is negative. Plan/VTE VTE Prophylaxis Ordered?: Yes VS, I&O, 24H, Fishbone Vital Signs/I&O Vital Signs Date Time Temp Pulse Resp B/P (MAP) Pulse Ox O2 Delivery O2 Flow Rate FiO2 07/14/19 08:25 16 07/14/19 08:20 123/79 07/14/19 08:20 76 07/14/19 06:00 97.9 96 I&O- Last 24 Hours up to 6 AM 07/14/19 06:00 Intake Total 1730 ml Output Total 1200 ml Balance 530 ml Laboratory Data Microbiology Microbiology 07/10/19 Blood Culture - Preliminary, Resulted No Growth after 72 hours. All specime... Kamari Titus MD Jul 14, 2019 10:30
[2019-07-14] MEDS: CEFTAROLINE FOSAMIL 600 MG in D5W MINI-BAG PLUS 50 ML IV SCH ×2 (12:16→23:21)
[2019-07-14] MEDS: MIRALAX *UNIT DOSE* 17GM PACKET PO PRN (16:36)
[2019-07-14] MEDS: zolPIDEM TARTRATE 5 MG TAB PO SCH (20:23)
[2019-07-14 22:00] VITALS: BP 122/79
[2019-07-15] MEDS: MORPHINE 4 MG/ML 1ML VIAL/SYRINGE (J2270) IV PRN ×6 (01:22→22:23)
[2019-07-15 06:00] VITALS: BP 128/84
[2019-07-15 06:35] LABS: HEMATOCRIT 39.1 % (36.0-47.0); MEAN CORPUSCULAR HGB CONC 30.7 g/dl (32.0-36.5); MEAN CORPUSCULAR VOLUME 91.1 fl (80.0-96.0); PLATELET COUNT, AUTOMATED 238 10^3/uL (150-450); RED BLOOD COUNT 4.29 10^6/uL (4.00-5.40); WHITE BLOOD COUNT 6.2 10^3/uL (4.0-10.0)
[2019-07-15 06:58] LABS: BLOOD UREA NITROGEN 5 MG/DL (7-18); C REACTIVE PROTEIN QUANTITATIV < 0.30 MG/DL (0.00-0.30); CALCIUM LEVEL 8.7 MG/DL (8.5-10.1); CARBON DIOXIDE LEVEL 31 MEQ/L (21-32); CHLORIDE LEVEL 105 MEQ/L (98-107); CREATININE FOR GFR 0.82 MG/DL (0.55-1.30); GLOMERULAR FILTRATION RATE > 60.0 (>58); GLUCOSE, FASTING 84 MG/DL (70-100); MAGNESIUM LEVEL 2.2 MG/DL (1.8-2.4); POTASSIUM SERUM 4.1 MEQ/L (3.5-5.1); SODIUM LEVEL 140 MEQ/L (136-145)
--- NOTE | 2019-07-15 08:05 | IPNPDOC ---
Subjective Date Seen The patient was seen on 07/15/19. Subjective Chief Complaint/HPI cellulitis, infection Events since last encounter Continues to slowly improve. RLE with warmth and tenderness. Admits to cons tipation. took bowel meds yesterday, + flatus. Denies n/v Constitutional: Denies: Chills, Fever, Night Sweats Pulmonary: Denies: Dyspnea, Cough Cardiovascular: Denies: Chest Pain, Palpitations, Orthopnea, Paroxysmal Noc. Dyspnea, Lt Headedness Gastrointestinal: Reports: Constipation; Denies: Nausea, Vomiting, Abdominal Pain, Diarrhea Psych: Reports: Mood Normal; Denies: Depression, Memory Issues Objective Physical Examination General Exam: Positive: Cooperative, No Acute Distress ENT Exam: Positive: Mucous membr. moist/pink Neck Exam: Positive: Supple; Negative: JVD, thyromegaly Chest Exam: Positive: Clear to auscultation, Normal air movement Heart Exam: Positive: Rate Normal, Regular Rhythm, Normal S1, Normal S2; Negative: Murmurs, Rubs Telemetry: Positive: No significant arrhythmia Abdomen Exam: Positive: Normal bowel sounds, Soft; Negative: Tenderness, Hepatospenomegaly Extremity Exam: Positive: Normal pulses; Negative: Edema Skin Exam: Positive: Nl turgor and temperature, Lesion (less red, no drainage. some darkening of inferior portion of posterior wound margin on left.) Neuro Exam: Positive: Normal Gait, Normal Speech, Reflexes 2+ Psych Exam: Positive: Mental status NL, Mood NL, Oriented x 3 Assessment /Plan Problems (1) Wound infection after surgery Status: Acute Response to Treatment: Stable Discussed With: Nurse, Patient Problem Specific Plan: Consult Specialist, Monitor Clinically, Repeat Labs Problem Text: 07/15/19: Remains warm and tender. no fevers, WBC stable. Keep for at least 1 more day for a full 5 day course of IV abx. PT eval today. Add on probiotic for increased abx use. 07/13. No drainage, seems to be slowing improving overall, today's slightly increased redness not withstanding. Continue Ceftaroline. She has supply of linezolid ready at home for when she is discharge. 07/12 Note from Jimmy recommends cont current treatment. Pt remain afebrile, WBC has normalized, CRP wallace slightly, monitor. IV Vanco/Ceftaroline. MRSA screening is Neg, will therefore DC Vanco. 10/10 Pt is Post op Bilatral plantar fascitis release with wound infection. She is afebrile, nl WBC, CRP on admission 0.38. She has been started on IV CLinda D2 and vancomycin and is tolerating this. IV morphine for pain control. Dr Marquez has been consulted. Will d/c clinda, start ceftaroline. Consider ID consult if not improving quickly. At this point will leave wound management decision to Dr. Marquez (whether wound requires I&D). (2) Smoker Status: Chronic Response to Treatment: Stable Problem Specific Plan: Monitor Clinically Problem Text: Smoking cessation counseling. (3) Nausea Status: Acute Problem Text: developed last night. no abdominal pain. possible constipation contributes. abdominal exam is negative. Plan/VTE VTE Prophylaxis Ordered?: Yes VS, I&O, 24H, Fishbone Vital Signs/I&O Vital Signs Date Time Temp Pulse Resp B/P (MAP) Pulse Ox O2 Delivery O2 Flow Rate FiO2 07/15/19 06:00 98.3 78 16 128/84 (99) 96 I&O- Last 24 Hours up to 6 AM 07/15/19 06:00 Intake Total 6674 ml Output Total 3800 ml Balance 2874 ml Laboratory Data 24H LABS Laboratory Tests 2 07/15/19 06:14: Nucleated Red Blood Cells % (auto) 0.0, Anion Gap 4L, Glomerular Filtration Rate > 60.0, Blood Urea Nitrogen 5L, Creatinine 0.82, Sodium Level 140, Potassium Level 4.1, Chloride Level 105, Carbon Dioxide Level 31, Calcium Level 8.7, Magnesium Level 2.2, C-Reactive Protein, Quantitative < 0.30 CBC/BMP Laboratory Tests 07/15/19 06:14 Red Blood Count 4.29, Mean Corpuscular Volume 91.1, Mean Corpuscular Hemoglobin 28.0, Mean Corpuscular Hemoglobin Concent 30.7 L, Red Cell Distribution Width 14.4, Calcium Level 8.7 Microbiology Microbiology 07/10/19 Blood Culture - Preliminary, Resulted No Growth after 72 hours. All specime... Heydi Pierre [employer] Jul 15, 2019 08:05
[2019-07-15] MEDS: METAMUCIL (PSYLLIUM) PACKET PO SCH (08:57)
[2019-07-15] MEDS: MIRALAX *UNIT DOSE* 17GM PACKET PO PRN (08:57)
[2019-07-15] MEDS: VENLAFAXINE **XR** 75MG CAPSULE PO SCH (08:57)
[2019-07-15] MEDS: LACTOBACILLUS ACIDOPHILUS CAP (BACID) PO SCH ×2 (08:59→17:24)
[2019-07-15] MEDS: ENOXAPARIN 40 MG/0.4 ML SYRINGE (J1650) SC SCH (08:59)
[2019-07-15] MEDS: POTASSIUM CHLORIDE 10 MEQ SR TABLET PO SCH (09:00)
[2019-07-15] MEDS: PANTOPRAZOLE 40MG TAB (PROTONIX) PO SCH (09:00)
[2019-07-15] MEDS: DOCUSATE SODIUM 100 MG CAP PO SCH (09:00)
[2019-07-15] MEDS: FUROSEMIDE 20 MG TAB PO SCH ×2 (09:00→17:24)
[2019-07-15] MEDS: MAGNESIUM OXIDE 400 MG TAB (MAG-OX) PO SCH ×2 (09:00→20:33)
[2019-07-15] MEDS: KETOCONAZOLE 2% CREAM TOP SCH ×2 (09:01→20:33)
[2019-07-15] MEDS: LOSARTAN 25 MG TAB PO SCH (09:01)
[2019-07-15] MEDS: MUPIROCIN 2% OINT 22 GM TUBE TOP SCH ×2 (09:01→20:32)
[2019-07-15] MEDS: ONDANSETRON 4MG/2ML VIAL (J2405) IV PRN (09:15)
--- NOTE | 2019-07-15 10:42 | IPN ---
DATE OF SERVICE: 07/15/2019 Patient seen and examined. States that she has some constipation but has been given medication for this. She states that her feet are sore but denies other night complaints. Vitals are reviewed. She is afebrile. Labs are reviewed WBC 6.2, CRP is normal, less than 0.3. Blood culture reveals no growth after 72 hours. Lower extremity examination erythema is nearly resolved. There is tenderness and some warmth at the incision itself. No fluctuance or drainage is noted. ASSESSMENT: 44-year-old female with postoperative wound infection and cellulitis. PLAN: I agree with one further day of IV antibiotics. She can be discharged home. She has oral Linezolid already at home which she can resume. Would initiate Epsom salt soaks twice daily. Continue Bacitracin to incisions. She should work with therapy to make sure that she is stable on her feet for discharge. Most likely discharge tomorrow.
[2019-07-15] MEDS ORDERED: MAGNESIUM SULFATE GRANULES(EPSOM SALT) 1LB TOP SCH (11:00)
[2019-07-15] MEDS: CEFTAROLINE FOSAMIL 600 MG in D5W MINI-BAG PLUS 50 ML IV SCH ×2 (11:11→22:23)
[2019-07-15] MEDS: NORCO, ANEXSIA 5/325MG TABLET (HYDROcodone/ACETAMINOPHEN) PO PRN ×3 (11:40→20:35)
[2019-07-15 14:00] VITALS: BP 125/81
[2019-07-15] MEDS: clonazePAM 1 MG TAB PO PRN (20:33)
[2019-07-15] MEDS: zolPIDEM TARTRATE 5 MG TAB PO SCH (20:35)
[2019-07-15] MEDS: tiZANidine 4 MG TAB PO PRN (21:37)
[2019-07-15 22:00] VITALS: BP 124/81
[2019-07-16] MEDS: NORCO, ANEXSIA 5/325MG TABLET (HYDROcodone/ACETAMINOPHEN) PO PRN ×3 (00:38→11:30)
[2019-07-16] MEDS: MORPHINE 4 MG/ML 1ML VIAL/SYRINGE (J2270) IV PRN ×2 (02:03→08:11)
[2019-07-16 06:00] VITALS: BP 127/81
[2019-07-16 06:21] LABS: HEMATOCRIT 38.4 % (36.0-47.0); HEMOGLOBIN 12.2 g/dl (12.0-15.5); MEAN CORPUSCULAR HEMOGLOBIN 29.3 pg (27.0-33.0); MEAN CORPUSCULAR HGB CONC 31.8 g/dl (32.0-36.5); MEAN CORPUSCULAR VOLUME 92.3 fl (80.0-96.0); PLATELET COUNT, AUTOMATED 238 10^3/uL (150-450); RED BLOOD COUNT 4.16 10^6/uL (4.00-5.40); WHITE BLOOD COUNT 5.9 10^3/uL (4.0-10.0)
[2019-07-16 07:10] LABS: ERYTHROCYTE SEDIMENTATION RATE 9 mm/hr (0-20)
[2019-07-16] MEDS: MIRALAX *UNIT DOSE* 17GM PACKET PO PRN (08:09)
[2019-07-16] MEDS: PANTOPRAZOLE 40MG TAB (PROTONIX) PO SCH (08:10)
[2019-07-16] MEDS: MAGNESIUM OXIDE 400 MG TAB (MAG-OX) PO SCH (08:10)
[2019-07-16] MEDS: FUROSEMIDE 20 MG TAB PO SCH (08:10)
[2019-07-16] MEDS: VENLAFAXINE **XR** 75MG CAPSULE PO SCH (08:10)
[2019-07-16] MEDS: tiZANidine 4 MG TAB PO PRN (08:10)
[2019-07-16] MEDS: POTASSIUM CHLORIDE 10 MEQ SR TABLET PO SCH (08:10)
[2019-07-16] MEDS: LACTOBACILLUS ACIDOPHILUS CAP (BACID) PO SCH (08:10)
[2019-07-16] MEDS: ENOXAPARIN 40 MG/0.4 ML SYRINGE (J1650) SC SCH (08:11)
[2019-07-16] MEDS: LOSARTAN 25 MG TAB PO SCH (08:15)
[2019-07-16] MEDS: MUPIROCIN 2% OINT 22 GM TUBE TOP SCH (08:16)
[2019-07-16] MEDS: KETOCONAZOLE 2% CREAM TOP SCH (08:17)
[2019-07-16] MEDS ORDERED: CVS1GRA TOP (10:50)
[2019-07-16] MEDS ORDERED: MUPI2OI TOP (10:50)
[2019-07-16] MEDS ORDERED: RISATAB3 PO (10:50)
[2019-07-16] MEDS ORDERED: PEG1POW PO (10:50)
[2019-07-16] MEDS ORDERED: MAG400TA PO (10:50)
[2019-07-16] MEDS: CEFTAROLINE FOSAMIL 600 MG in D5W MINI-BAG PLUS 50 ML IV SCH (11:29)
[2019-07-16 11:30] VITALS: BP 121/74
--- NOTE | 2019-07-16 13:50 | DSES ---
DATE OF ADMISSION: 07/10/2019 DATE OF DISCHARGE: 07/16/2019 BRIEF HISTORY AND PHYSICAL: The patient is a 44-year-old patient of Heydi Pierre who had plantar fasciitis surgery with Dr. Marquez with a plantar fasciitis release on 06/25/2019. She had significant pain postoperatively and then developed a fever of 102, occasionally some drainage in the right foot wound. She has been on linezolid as an outpatient per Dr. Marquez, but despite that developed worsening pain and redness. PAST MEDICAL HISTORY: Is significant for fibromyalgia on chronic narcotics, psoriasis, asthma, irritable bowel syndrome, migraine headaches, lumbar stenosis, and a positive HLA-B27. PERTINENT LABORATORIES ON ADMISSION: Sodium 138, potassium 3.1, BUN 6, creatinine 0.86, glucose of 105, white count 11.8, hemoglobin 13.5, platelets 307,000. Sedimentation rate was 7. CRP 0.38. Blood cultures were negative. No imaging was performed. HOSPITAL COURSE: The patient was admitted for postoperative wound infection and cellulitis of both plantar fasciitis incision sites. She was placed on ceftaroline. She received full 5-day courses of intravenous (IV) ceftaroline. The redness has resolved. She had some localized tenderness over the wound site without any drainage. The wounds are dry and healing well. There is no significant swelling. Her C-reactive protein (CRP) has trended down, and her white count is normal. She is afebrile, and I spoke with Dr. Marquez, who feels comfortable with discharging her today. She will go back on the linezolid she was taking prior to admission. She has about 5 more days of that antibiotic left at home, which she will continue. She will continue the Epsom salt soaks that she has been doing here in the hospital, as well as mupirocin ointment to the wound site. She will followup with him in the office. As far as her pain, she is on chronic narcotics at home with hydrocodone that had not satisfactorily been controlling her pain, and so Dr. Marquez had prescribed Percocet. She has requested for the Percocet for discharge home, which I have given her 5 days' worth and with the idea that she would not be combining that with the hydrocodone, possibly alternating them but no more frequently than every 6 hours of either medication. DISPOSITION: She is stable for discharge home. Follow up with Heydi Pierre next week. Followup with Dr. Marquez per his office. Diet regular. Activity as tolerated. MEDICATIONS: Linezolid 600 mg twice a day. She has 5 more days of this. Probiotics twice a day. Magnesium 400 mg twice a day. Epsom salt therapy as directed. Mupirocin to the wounds twice a day. MiraLAX daily. Albuterol two puffs every 4 hours as needed. Clonazepam one tablet twice a day as needed for anxiety. Dicyclomine 20 mg daily as needed for irritable bowel. Diltiazem 60 mg before meals. Colace 100 mg every other day. Furosemide 20 mg twice a day. Linzess 290 mcg daily as needed for constipation. Losartan 25 mg daily. Percocet every 8 hours as needed for pain. Pantoprazole 40 mg daily. Potassium 40 mEq daily. Metamucil every other day. Sumatriptan 50 mcg daily as needed. Tizanidine 40 mg every 6 hours as needed for pain. Venlafaxine 225 mg daily. DISCHARGE DIAGNOSES: 1. Postoperative wound infection with cellulitis. 2. Plantar fasciitis, status post release. 3. Fibromyalgia. 4. Chronic pain from spinal stenosis. 5. Hypokalemia.
== END 2019-07-16 12:15 | disposition home or self-care (01) | DRG 721 ==
LOC: M MSPAV 14:46
PROVIDERS: ADMIT Internal Medicine; ATTEND Family Medicine
DX: T81.49XA Infection following a procedure, other surgical site, initial encounter (principal); L03.115 Cellulitis of right lower limb; M79.7 Fibromyalgia; J45.909 Unspecified asthma, uncomplicated; G43.909 Migraine, unspecified, not intractable, without status migrainosus; K58.9 Irritable bowel syndrome, unspecified; L40.8 Other psoriasis; G89.29 Other chronic pain; E87.6 Hypokalemia; Z79.899 Other long term (current) drug therapy; Z88.2 Allergy status to sulfonamides; Z88.8 Allergy status to other drugs, medicaments and biological substances; M99.53 Intervertebral disc stenosis of neural canal of lumbar region; F17.200 Nicotine dependence, unspecified, uncomplicated; Y83.8 Other surgical procedures as the cause of abnormal reaction of the patient, or of later complication, without mention of misadventure at the time of the procedure

== ENCOUNTER → 2020-07-08 | Outpatient (CLI) | payer BC ==
[~2020-07-08] MED LIST changes: +CVS1GRA TOP; +DICY20TA PO; +DILT60TA PO; +DOCU100C17 PO; +LINE1TAB PO; +LINZ290C PO; +MAG400TA PO; +META28.32 PO; +MUPI2OI TOP; +OXYC1TAB23 PO; +PANT40TA29 PO; -PANT40TA3 PO; +PEG1POW PO; +RISATAB3 PO; +SUMA50TA2 PO; +TIZA4TAB4 PO; +VENL-37 PO; +VENTAER INH
--- NOTE | 2020-07-13 09:46 | REP ---
RIGHT KNEE SERIES: 6-VIEWS HISTORY: Acute pain right knee. 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 Increased pain. Question hardware shifting. COMPARISON RADIOGRAPHS: None. FINDINGS: Six views of the right knee demonstrate a screw plate fixation device applied along the lateral cortex of the proximal tibia. There is a large area of sclerosis, which may reflect methyl methacrylate or other opaque bone packing material in the proximal tibial metaphysis. This is seen over an area of 5.9 cm in greatest dimension. The overlying anterior, posteromedial, and lateral cortex appear intact. Tibial plateau appears intact. There is no evidence of loosening in the tibial metallic hardware. There is minimal medial and patellofemoral osteophytic lipping. Periarticular soft tissues are unremarkable. IMPRESSION: Postoperative changes in the proximal tibia as above. No evidence of loosening or bony destructive lesion. MTDD
== END ==
LOC: M CLY 10:17
PROVIDERS: ATTEND Nurse Practitioner Family
DX: M25.561 Pain in right knee (principal)

== ENCOUNTER → 2023-01-02 | Outpatient (REF) | payer BC ==
[~2023-01-02] MED LIST changes: -DICY20TA PO; +DICY20TA3 PO; +LOSA25TA13 PO; -LOSA25TA14 PO; -MAG400TA PO; +MAGN400T35 PO; -PEG1POW PO; +POLY17PO18 PO; +POTA-151 PO; -POTA20TA6 PO; +TIZA10TA PO; -TIZA4TAB4 PO
[2023-01-02 18:38] LABS: ALKALINE PHOSPHATASE 63 U/L (46-116); ALT/SGPT 14 U/L (7.0-40); AST/SGOT 15 U/L (<34); BASO # 0.1 10^3/uL (0.0-0.2); BASO % 0.8 % (0.0-1.0); BILIRUBIN,TOTAL 0.3 MG/DL (0.3-1.2); BLOOD UREA NITROGEN 8 MG/DL (9-23); CALCIUM LEVEL 9.7 MG/DL (8.5-10.1); CARBON DIOXIDE LEVEL 32 MMOL/L (20-31); CHLORIDE LEVEL 105 MMOL/L (98-107); EOS # 0.1 10^3/uL (0.0-0.5); EOS % 0.9 % (0.0-3.0); GLOMERULAR FILTRATION RATE > 60.0 (>58); GLUCOSE, FASTING 89 MG/DL (60-100); HEMATOCRIT 42.4 % (36.0-47.0); HEMOGLOBIN 13.6 g/dl (12.0-15.5); LYMPH # 2.9 10^3/uL (1.5-5.0); LYMPH % 37.2 % (24.0-44.0); MAGNESIUM LEVEL 1.7 MG/DL (1.8-2.4); MEAN CORPUSCULAR HEMOGLOBIN 30.5 pg (27.0-33.0); MEAN CORPUSCULAR HGB CONC 32.1 g/dl (32.0-36.5); MEAN CORPUSCULAR VOLUME 95.1 fl (80.0-96.0); MONO # 0.5 10^3/uL (0.0-0.8); MONO % 6.4 % (2.0-8.0); NEUTROPHILS # 4.3 10^3/uL (1.5-8.5); NEUTROPHILS % 54.6 % (36.0-66.0); PLATELET COUNT, AUTOMATED 261 10^3/uL (150-450); POTASSIUM SERUM 3.7 MMOL/L (3.5-5.1); RED BLOOD COUNT 4.46 10^6/uL (4.00-5.40); SODIUM LEVEL 142 MMOL/L (136-145); TOTAL PROTEIN 6.2 G/DL (5.7-8.2); WHITE BLOOD COUNT 7.8 10^3/uL (4.0-10.0)
== END ==
LOC: M SFHCCLAY 11:06
PROVIDERS: ATTEND Nurse Practitioner Family
DX: G25.81 Restless legs syndrome (principal); K50.118 Crohn's disease of large intestine with other complication

== ENCOUNTER → 2023-04-19 | Outpatient (REF) | payer BC ==
[2023-04-19 17:17] LABS: BASO # 0.1 10^3/uL (0.0-0.2); BASO % 1.5 % (0.0-1.0); EOS # 0.1 10^3/uL (0.0-0.5); EOS % 1.8 % (0.0-3.0); HEMATOCRIT 43.6 % (36.0-47.0); LYMPH # 2.8 10^3/uL (1.5-5.0); LYMPH % 37.5 % (24.0-44.0); MEAN CORPUSCULAR HGB CONC 32.1 g/dl (32.0-36.5); MEAN CORPUSCULAR VOLUME 96.5 fl (80.0-96.0); MONO # 0.7 10^3/uL (0.0-0.8); MONO % 8.6 % (2.0-8.0); NEUTROPHILS # 3.8 10^3/uL (1.5-8.5); NEUTROPHILS % 50.3 % (36.0-66.0); PLATELET COUNT, AUTOMATED 309 10^3/uL (150-450); RED BLOOD COUNT 4.52 10^6/uL (4.00-5.40); WHITE BLOOD COUNT 7.6 10^3/uL (4.0-10.0)
[2023-04-19 17:51] LABS: ALBUMIN 4.1 G/DL (3.2-5.2); ALKALINE PHOSPHATASE 78 U/L (46-116); ALT/SGPT 17 U/L (7.0-40); AST/SGOT 14 U/L (<34); BILIRUBIN,TOTAL 0.5 MG/DL (0.3-1.2); BLOOD UREA NITROGEN 6 MG/DL (9-23); CALCIUM LEVEL 9.8 MG/DL (8.5-10.1); CARBON DIOXIDE LEVEL 31 MMOL/L (20-31); CHLORIDE LEVEL 102 MMOL/L (98-107); GLOMERULAR FILTRATION RATE > 60.0 (>58); GLUCOSE, FASTING 88 MG/DL (60-100); POTASSIUM SERUM 4.3 MMOL/L (3.5-5.1); SODIUM LEVEL 138 MMOL/L (136-145); TOTAL PROTEIN 6.6 G/DL (5.7-8.2)
== END ==
LOC: M SFHCCLAY 10:44
PROVIDERS: ATTEND Nurse Practitioner Family
DX: K50.118 Crohn's disease of large intestine with other complication (principal)

== ENCOUNTER → 2023-06-08 | Outpatient (CLI) | payer BC | LOC: M PLAIMG 10:41 | PROVIDERS: ATTEND Nurse Practitioner Family | DX: M47.12 Other spondylosis with myelopathy, cervical region (principal); M47.16 Other spondylosis with myelopathy, lumbar region ==

== ENCOUNTER → 2023-10-24 | Outpatient (REF) | payer BC ==
[2023-10-24 19:27] LABS: HEMOGLOBIN A1c 5.3 % (4.0-6.0)
[2023-10-24 19:43] LABS: ALBUMIN 3.9 G/DL (3.2-5.2); ALKALINE PHOSPHATASE 62 U/L (46-116); ALT/SGPT 16 U/L (7.0-40); AST/SGOT 16 U/L (<34); BILIRUBIN,TOTAL 0.2 MG/DL (0.3-1.2); BLOOD UREA NITROGEN 10 MG/DL (9-23); CALCIUM LEVEL 9.1 MG/DL (8.5-10.1); CARBON DIOXIDE LEVEL 29 MMOL/L (20-31); CHLORIDE LEVEL 106 MMOL/L (98-107); CREATININE FOR GFR 0.81 MG/DL (0.55-1.30); GLOMERULAR FILTRATION RATE > 60.0 (>58); GLUCOSE, FASTING 76 MG/DL (60-100); POTASSIUM SERUM 4.3 MMOL/L (3.5-5.1); SODIUM LEVEL 139 MMOL/L (136-145); TOTAL PROTEIN 6.4 G/DL (5.7-8.2)
== END ==
LOC: M SFHCCLAY 13:14
PROVIDERS: ATTEND Nurse Practitioner Family
DX: R73.9 Hyperglycemia, unspecified (principal)

== ENCOUNTER → 2025-06-12 | Outpatient (CLI) | payer BC ==
[~2025-06-12] MED LIST changes: +ZOLP10TA11 PO; -ZOLP10TA2 PO
== END ==
LOC: M PLAIMG 09:16
PROVIDERS: ATTEND Nurse Practitioner Family
DX: M47.12 Other spondylosis with myelopathy, cervical region (principal); M47.16 Other spondylosis with myelopathy, lumbar region; M48.061 Spinal stenosis, lumbar region without neurogenic claudication; M50.222 Other cervical disc displacement at C5-C6 level